=== PATIENT | female | born 1935 | race Caucasian/White ===

== ENCOUNTER 2017-05-17 08:21 | Day surgery (SDC) | payer MEDICARE ==
[2017-05-16 12:03] LABS: BASOPHILS % (AUTO) 0.7 % (0-1); EOSINOPHILS # (AUTO) 0.3 X10'3 (0-0.9); EOSINOPHILS % (AUTO) 4.5 % (0-6); LYMPHOCYTES # (AUTO) 1.5 X10'3 (1.1-4.8); LYMPHOCYTES % (AUTO) 25.1 % (21-51); MEAN CORPUSCULAR HEMOGLOBIN 30.8 PG (27.0-31.0); MEAN CORPUSCULAR HGB CONC 34.6 % (33.0-36.5); MEAN CORPUSCULAR VOLUME 88.9 FL (78-98); MEAN PLATELET VOLUME 9.2 FL (7.4-10.4); MONOCYTES # (AUTO) 0.5 X10'3 (0-0.9); NEUTROPHILS # (AUTO) 3.6 X10'3 (1.8-7.7); NEUTROPHILS % (AUTO) 60.7 % (42-75); PRE OP HEMATOCRIT 40.8 % (35.0-45.0); PRE OP HEMOGLOBIN 14.1 g/dL (12.0-16.0); PRE OP PLATELET COUNT 198 X10'3 (140-440); RED BLOOD COUNT 4.59 X10'6 (4.20-5.60); RED CELL DISTRIBUTION WIDTH 13.8 % (11.5-14.5)
[2017-05-16 12:14] LABS: PRE OP PROTIME 10.2 SECONDS (9.0-12.0)
[2017-05-16 12:18] LABS: ALBUMIN/GLOBULIN RATIO 1.1 (1.1-1.5); ALKALINE PHOSPHATASE 119 IU/L (46-116); BLOOD UREA NITROGEN 14 MG/DL (7-18); BUN/CREATININE RATIO 15.9 (6.6-38.0); CALCIUM 9.3 MG/DL (8.5-10.1); CHLORIDE 108 MMOL/L (99-107); CREATININE 0.88 MG/DL (0.40-0.90); PRE OP ALT 27 U/L (30-65); PRE OP ANION GAP 8 (8-16); PRE OP AST 24 U/L (10-37); PRE OP BILIRUB, TOTAL 0.7 MG/DL (0.0-1.0); PRE OP GLUCOSE 104 MG/DL (70-104); PRE OP POTASSIUM 3.7 MMOL/L (3.4-5.1); PRE OP SODIUM 146 MMOL/L (135-145); TOTAL CARBON DIOXIDE 29.6 MMOL/L (24-32); TOTAL PROTEIN 7.7 G/DL (6.4-8.2); eGFR 62 ML/MIN
[2017-05-17] VITALS (7 sets, daily range): BP systolic 134–186; BP diastolic 60–90
[~2017-05-17] VITALS: Ht 162.6 cm; Wt 66.8 kg
[~2017-05-17 08:21] MED LIST: ALBU18HF2 IH; ASPI-1265 PO; BUPIVAcaine/PF 2.5 mg/ml (0.25%) 30ml vial ONE; CELE-193 PO; CLOP75TA15 PO; DOCUMENT DATE & TIME OF BETA-BLOCKER PO ONE; ESTR42.53 VG; FLUT1AER INH; ISOS60TA4 PO; LIDO700A32 TOP; LOSA50TA3 PO; METO100T7 PO; SIMV20TA5 PO; TRAM50TA2 PO; VENL75TA4 PO; VOLTAREN GEL TOP; albuterol 2.5 MG/3 ML nebule NEB ONE; famotidine 20mg tablet PO ONE; ringers solution, lacted 1,000 ML IV SCH
[2017-05-17] MEDS ORDERED: labetalol 5mg/ml 20ml inj. IV PRN (08:30)
[2017-05-17] MEDS ORDERED: ondansetron/PF 4mg/2ml inj IV PRN (08:30)
[2017-05-17] MEDS ORDERED: fentaNYL/PF 50MCG/1 ML 2ML syringe IV PRN ×2 (08:30)
[2017-05-17] MEDS ORDERED: hydrALAZINE 20mg/ml inj. IV PRN (08:30)
[2017-05-17] MEDS ORDERED: ringers solution, lacted 1,000 ML IV SCH (08:30)
[2017-05-17] MEDS ORDERED: LIDOcaine 0.5% (5mg/ml) 50ml vial ONE (10:28)
[2017-05-17] MEDS ORDERED: cefazolin/dext.iso 2gm/50ml 50 ML IV SCH (16:00)
== END 2017-05-17 11:42 | disposition home or self-care (01) ==
LOC: PAS 08:21
PROVIDERS: ATTEND Orthopaedic Surgery Hand Surgery
DX: G56.02 Carpal tunnel syndrome, left upper limb (principal); J44.9 Chronic obstructive pulmonary disease, unspecified; F32.9 Major depressive disorder, single episode, unspecified; M19.90 Unspecified osteoarthritis, unspecified site; I10 Essential (primary) hypertension; I25.2 Old myocardial infarction; Z88.6 Allergy status to analgesic agent; Z95.1 Presence of aortocoronary bypass graft; Z95.5 Presence of coronary angioplasty implant and graft; Z86.73 Personal history of transient ischemic attack (TIA), and cerebral infarction without residual deficits; Z79.82 Long term (current) use of aspirin; Z86.74 Personal history of sudden cardiac arrest; Z87.891 Personal history of nicotine dependence; Z96.642 Presence of left artificial hip joint; Z79.01 Long term (current) use of anticoagulants; Z96.653 Presence of artificial knee joint, bilateral; Z79.899 Other long term (current) drug therapy; Z98.890 Other specified postprocedural states
CPT/HCPCS: 36415; 64721; 71046; 80053; 85025; 85610; 85730; A6222; A6449; J2001; J3490; J7120

== ENCOUNTER 2020-03-21 11:11 | Outpatient (CLI) | payer MEDICARE ==
[~2020-03-21 11:11] MED LIST changes: -BUPIVAcaine/PF 2.5 mg/ml (0.25%) 30ml vial ONE; -DOCUMENT DATE & TIME OF BETA-BLOCKER PO ONE; -ISOS60TA4 PO; +SIMV-42 PO; -SIMV20TA5 PO; -TRAM50TA2 PO; -VOLTAREN GEL TOP; -albuterol 2.5 MG/3 ML nebule NEB ONE; -famotidine 20mg tablet PO ONE; -ringers solution, lacted 1,000 ML IV SCH
== END 2020-03-21 23:59 | disposition home or self-care (01) ==
LOC: RAD 11:11
DX: R55 Syncope and collapse (principal)
CPT/HCPCS: 95816